=== PATIENT | female | born 1990 | race Caucasian/White ===

== ENCOUNTER → 2019-01-23 | Outpatient (CLI) | payer OTHER ==
--- NOTE | 2019-01-23 14:46 | RADIOLOGY IMAGING REPORT ---
FACILITY: [facility] [place] PATIENT NAME: Sara Bautista : 1990 MR: [id number] V: [id number] EXAM DATE: ORDERING PHYSICIAN: DU HARRISON TECHNOLOGIST: Location: [facility] Patient: Sara Bautista : 1990 Visit/Account:[id number] Date of Sevice: 01/23/2019 KUB SINGLE VIEW ABDOMEN INDICATION: Abdominal pain, diarrhea COMPARISON: None available FINDINGS: Frontal view obtained. No abnormal calcifications, organomegaly or dilated bowel loops. Slight convexity left lumbar scoliosis. IMPRESSION: 1. No acute finding. 2. Slight convexity left lumbar scoliosis. Report Dictated By: Castro Ta MD at 01/23/2019 2:37 PM Report E-Signed By: Castro Ta MD at 01/23/2019 2:38 PM WSN:[id number]
== END ==
LOC: RAD 14:05
PROVIDERS: ATTEND Nurse Practitioner Family
DX: R10.9 Unspecified abdominal pain (principal)
CPT/HCPCS: 74018